=== PATIENT | female | born 1980 | race Caucasian/White ===

== ENCOUNTER → 2019-11-22 | Outpatient (CLI) | payer MEDICAID | LOC: OD 14:42 | PROVIDERS: ATTEND Otolaryngology | DX: J30.9 Allergic rhinitis, unspecified (principal) | CPT/HCPCS: 36415; 82785; 86003 ==

== ENCOUNTER → 2019-12-13 | Outpatient (CLI) | payer MEDICAID ==
--- NOTE | 2019-12-13 13:28 | RADIOLOGY REPORT (SQ) ---
EXAM DESCRIPTION: CT SINUSES FOR ENT IMAGES COMPLETED DATE/TIME: 12/13/2019 8:54 am REASON FOR STUDY: J32.0 CHRONIC MAXILLARY SINUSITIS J32.0 CHRONIC MAXILLARY SINUSITIS COMPARISON: None. TECHNIQUE: Noncontrast scanning through the paranasal sinuses using bone algorithm. Reconstructed MPR images reviewed. All images stored on PACS. Images acquired for image guided surgery. All CT scanners at this facility use dose modulation, iterative reconstruction, and/or weight based d osing when appropriate to reduce radiation dose to as low as reasonably achievable (ALARA). [facility]: Dose Right [facility]: CareDose [facility]: Dose Right [facility]: Teradose 4D [facility]: [employer] RADIATION DOSE: mGy. FINDINGS: NASAL PASSAGES: Clear. No polyps or masses. OSTEOMEATAL UNITS AND NASOFRONTAL DUCTS: Patent on the right. No agger nasi or Dilma cells. MAXILLARY SINUSES: Near complete opacification left maxillary sinus. Variable density within with co nvex margins, likely a large mucous retention cyst. ETHMOID SINUSES: Well-pneumatized and clear. SPHENOID SINUSES: Well-pneumatized and clear. FRONTAL SINUSES: Well-pneumatized and clear. MASTOID AIR CELLS: Clear. ORBITS: Normal and symmetrical. NASAL SEPTUM: Midline. No nasal septal spurs. TEMPOROMANDIBULAR JOINTS: Normal. TURBINATES: Mildly pneumatized right middle turbinate. OTHER: No other significant findings. IMPRESSION: Left maxillary sinus disease. TECHNICAL DOCUMENTATION: JOB ID: [id number] Quality ID # [id number]: Final reports with documentation of one or more dose reduction techniques (e.g., Au tomated exposure control, adjustment of the mA and/or kV according to patient size, use of iterative reconstruction technique) 2010 [employer]- All Rights Reserved Reading location - IP/workstation name: [email or web address]
== END ==
LOC: RAD 08:44
PROVIDERS: ATTEND Otolaryngology
DX: J32.0 Chronic maxillary sinusitis (principal)
CPT/HCPCS: 70486

== ENCOUNTER 2020-01-18 10:05 | Day surgery (SDC) | payer MEDICAID ==
[~2020-01-18 10:05] MED LIST: CEFAZOLIN 2 GM/D5W RTU 2 GM/50 ML RTUPB IV PRN; DEXAMETHASONE SOD PHOS INJ 10 MG/1 ML VIAL ONE; DEXMEDETOMIDINE INJ 80 MCG/20 ML VIAL IV ONE; FAMOTIDINE INJ/PF 20 MG/2 ML SDV IV ONE; FENTANYL CITRATE INJ/PF 100 MCG/2 ML AMPUL ONE; GLYCOPYRROLATE INJ 0.4 MG/2 ML VIAL ONE; LIDOCAINE 2% INJ-PF (100 MG/5 ML) SYRINGE ONE; MIDAZOLAM 2 MG/2 ML INJ ONE; MORPHINE SULFATE 10 MG/ML INJ ONE; ONDANSETRON HCL INJ/PF 4 MG/2 ML SDV ONE; PROPOFOL INJ 200 MG/20 ML VIAL IV ONE; SUCCINYLCHOLINE CHLORIDE INJ 200 MG/10 ML VIAL ONE
[2020-01-18] MEDS ORDERED: BACITRACIN ZINC OINTMENT 15 GM ONE (11:15)
[2020-01-18] MEDS: OXYMETAZOLINE HCL 0.05% NASAL SPRAY 15 ML BOTTLE ONE ×2 (12:09→13:17)
[2020-01-18] MEDS: COCAINE HCL 4% TOPICAL SOLN 4 ML ONE ×2 (12:09→13:17)
[2020-01-18] MEDS: LIDOCAINE 2%/EPINEPHRINE INJ 1.7 ML CARTRIDGE ONE ×2 (12:09→13:17)
[2020-01-18] MEDS: TRIAMCINOLONE ACETONIDE INJ 40 MG/1 ML VIAL ONE ×2 (12:45→13:16)
--- NOTE | 2020-01-18 13:24 | Operative Report ---
Operative Report-[facility] Operative Report: Date: 18 January 2020 History: 39-year-old female with a history of left-sided facial pain/pressure. CT scan demonstrated a large polyp within the left maxillary sinus along with mucosal thickening involving the left anterior/posterior ethmoid and left frontal sinus. Presents today for an endoscopic sinus surgery with removal polyp left maxillary sinus. Informed consent was obtained from the patient Preoperative Diagnosis: 1. Chronic Sinusitis 2. Polyp maxillary sinus, left Postoperative Diagnosis: Same as above Procedure: 1. Maxillary antrostomy, left [CPT: 68850] 2. Total ethmoidectomy, left [CPT: 94525] 3. Frontal sinusotomy, left [CPT: 92209] 4. Removal polyp maxillary sinus, left [CPT: 68835] Surgeon: Brenden Cerrato MD, FACS, [facility] Anesthesia: GETA Description of the procedure: After receiving informed consent, the patient was taken to the operating room and placed supine on the operating table. After successful induction and intubation by anesthesia, cottonoids saturated with 4% cocaine were placed into each nasal cavity. After 5 minutes they were removed and the nasal septum along with the inferior turbinates, middle turbinates and lateral nasal wall were injected with 2% Xylocaine with 1-100,000 epinephrine. The 4% cocaine cottonoids were then placed back into each nasal cavity. The patient was then prepped and draped in a sterile fashion. The image guidance system was then calibrated to the patient and found to be functioning normally. The cottonoids were removed from the left side. The rigid nasal endoscope was then inserted and the middle turbinate was visualized and medialized using a freer elevator. A seeker was placed into the infundibulum and the uncinate process was displaced anteriorly. A sickle knife was used to make an incision along the lateral portion of the uncinate process. An uncinectomy was accomplished using the microdebrider and Blakesley forceps. An olive-tipped sucker was used to gain entrance into the maxillary sinus through the natural os. The antrostomy was widened in an anterior, inferior and posterior direction using the microdebrider. A wide maxillary antrostomy was obtained which allowed complete visualization of the maxillary sinus. At this point the polyp was encountered and removed using 45 degree Blakesley forceps and a 40 degree microdebrider. The maxillary sinus was irrigated using the hydro-irrigation system by [employer]. Endoscopic view of the maxillary sinus revealed total removal of the polyp. Polypoid degeneration of the maxillary sinus mucosa was noted. Attention was then directed to the ethmoids where a total ethmoidectomy was performed using Blakesley forceps and microdebrider. A frontal sinusotomy was performed using microdebrider. Keeping the middle turbinate medialized an absorbable pack was placed into the middle meatus. The packing was then infiltrated with Kenalog 40. The patient was then given back to anesthesia who successfully extubated the patient without any complications. Estimated blood loss: 20 mL Fluids: 1200 mL The patient was then transported to the postanesthesia care unit in stable condition with spontaneous respirations. No complications.
[2020-01-18] MEDS ORDERED: PROPOFOL INJ 200 MG/20 ML VIAL IV ONE (13:28)
== END 2020-01-18 14:42 | disposition home or self-care (01) ==
LOC: SC 10:05
PROVIDERS: ATTEND Otolaryngology
DX: J32.0 Chronic maxillary sinusitis (principal); J34.2 Deviated nasal septum; J32.9 Chronic sinusitis, unspecified; H69.83 Other specified disorders of Eustachian tube, bilateral; J30.9 Allergic rhinitis, unspecified; Z88.0 Allergy status to penicillin; Z03.818 Encounter for observation for suspected exposure to other biological agents ruled out
CPT/HCPCS: 87635; 31256; 31255; 31276; 31267; J2250; J3490 ×3; C9046; J3010; J2001; J2270; J0330; J2405; J3301; J2704; S0028; J1100; J0690; C9803; 160; 88304; 88312